=== PATIENT | female | born 1960 | race Caucasian/White ===

== ENCOUNTER 2019-09-21 09:00 | Day surgery (SDC) | payer OTHER ==
[~2019-09-21] VITALS: Ht 177.8 cm; Wt 118.5 kg
[~2019-09-21 09:00] MED LIST: ATOR10 PO; ATOR20 PO; CELE100 PO; CYCL10 PO; DICL75ER PO; GLIM2 PO; GLIP5 PO; HYDCHL12.5 PO; LORA10 PO; METF500 PO; METF500C PO; METO100ER PO; OMEP20ER PO; Percocet 5-3251 EACH PO
[2019-09-21] MEDS ORDERED: DICL75ER PO (09:58)
[2019-09-21] MEDS ORDERED: IBUP600 PO (09:59)
--- NOTE | 2019-09-21 12:50 | NUR ---
09/21/19 1250 Natacha Miller WAS GIVEN PER ORDERS IN PAR, PT IS ON 10L O2 VIA NRB. SHE IS MEDICATED FOR 06/13 PAIN.
--- NOTE | 2019-09-21 13:11 | NUR ---
09/21/19 1311 Natacha Miller REPORT GIVEN TO [facility] AT 1311.
== END 2019-09-21 14:20 | disposition home or self-care (01) ==
LOC: ORSCSDS 09:00
PROVIDERS: Orthopaedic Surgery
PROC: 0RNK4ZZ Release Left Shoulder Joint, Percutaneous Endoscopic Approach (ICD-10-PCS; principal; 2019-09-21 10:00)
PROC: 0LQ24ZZ Repair Left Shoulder Tendon, Percutaneous Endoscopic Approach (ICD-10-PCS; principal; 2019-09-21 10:00)
PROC: 0RBK4ZZ Excision of Left Shoulder Joint, Percutaneous Endoscopic Approach (ICD-10-PCS; principal; 2019-09-21 10:00)
DX: M75.112 Incomplete rotator cuff tear or rupture of left shoulder, not specified as traumatic (principal); M75.42 Impingement syndrome of left shoulder; I10 Essential (primary) hypertension; E11.9 Type 2 diabetes mellitus without complications; F17.210 Nicotine dependence, cigarettes, uncomplicated; E78.5 Hyperlipidemia, unspecified; Z79.899 Other long term (current) drug therapy; Z79.84 Long term (current) use of oral hypoglycemic drugs
CPT/HCPCS: 82947; C1713; J0171; J0330; J0690; J0735; J1885; J2250; J2405; J2704; J2710; J2795; J3010; J7120

== ENCOUNTER → 2020-07-24 | Outpatient (CLI) | payer OTHER ==
[~2020-07-24] MED LIST changes: +ALBU90OI INH; +ATOR40TA PO; +CITA20 PO; +HYDCHL25 PO; +IBUP600 PO; +Loratadine10 MG PO; +METO100 PO; +OXYB5 PO
== END | disposition home or self-care (01) ==
LOC: LAB SHORT 14:44 → LAB EV 14:44
DX: R50.9 Fever, unspecified (principal); Z20.828 Contact with and (suspected) exposure to other viral communicable diseases
CPT/HCPCS: U0003

== ENCOUNTER 2020-09-19 07:38 | Day surgery (SDC) | payer OTHER ==
[~2020-09-19] VITALS: Ht 180 cm; Wt 121.9 kg
--- NOTE | 2020-09-19 08:53 | NUR ---
Ambulatory in Day Surgery History, Chart, Medications and Allergies reviewed before start of procedure. Lungs clear T/O to Auscultation. Pre-Op teaching done. Pt verbalizes understanding.
--- NOTE | 2020-09-19 11:22 | NUR ---
RECEIVED REPORT FROM LARY MCELROY RN. PT AWAKE AND ABLE TO MAKE NEEDS KNOWN. HAD PT POSITION TO HI SEMI [place] TO PRACTICE DBC. ABLE TO TITRATE TO RA. PT PROVIDED FOOD AND FLUID, AT [facility]. WILL SEND HOME INCENTIVE SPIROMETER. 4 INCISIONS REMAIN INTACT WITHOUT BLEEDING AND DURABOND.
--- NOTE | 2020-09-19 12:02 | NUR ---
Patient up to Ambulate independently. Gait steady. Discharge instructions reviewed with patient. Patient verbalizes understanding. Copy given to patient to take home. Patient States Post-Procedure ride home has been arranged. Discharged via wheelchair to private car for ride home. INCISIONS X4 WITHOUT BLEEDING OR DARAINAGE, DURABOND REMAINS INTACT. PT ABLE TO INSPIRE 2500ML INTO INCENTIVE SPIROMETER. ALL BELONINGS RETURNED. PT DECIDED TO HAVE ANOUTHER PAIN PILL FORM INCREASE DURING GETTING DRESSED. PT RECEIVED A TOTAL OF 2 PAIN PILLS.
== END 2020-09-19 23:12 | disposition home or self-care (01) ==
LOC: ORSCMMR 07:38 → ORD 09:00 → ORSCMMR 09:00
PROVIDERS: Surgery
PROC: 0FT44ZZ Resection of Gallbladder, Percutaneous Endoscopic Approach (ICD-10-PCS; principal; 2020-09-19 09:00)
PROC: BF121ZZ Fluoroscopy of Gallbladder using Low Osmolar Contrast (ICD-10-PCS; principal; 2020-09-19 09:00)
DX: K80.10 Calculus of gallbladder with chronic cholecystitis without obstruction (principal); I10 Essential (primary) hypertension; E11.9 Type 2 diabetes mellitus without complications; K21.9 Gastro-esophageal reflux disease without esophagitis; E66.9 Obesity, unspecified; Z68.37 Body mass index [BMI] 37.0-37.9, adult; Z79.84 Long term (current) use of oral hypoglycemic drugs; Z79.899 Other long term (current) drug therapy
CPT/HCPCS: 74300; 82947; 88304; A9270; A9270-GY; C1729; J0690; J1100; J2250; J2405; J2704; J3010; J7120

== ENCOUNTER 2020-10-01 13:43 | Emergency (ER) | payer OTHER ==
[~2020-10-01] VITALS: Ht 180.3 cm; Wt 117.9 kg
[2020-10-01 14:22] LABS: BASOPHILS ABSOLUTE AUTO 0.16 K/mm3 (0.00-0.23); BASOPHILS PERCENT AUTO 1 % (0-2); EOSINOPHILS ABSOLUTE AUTO 0.35 K/mm3 (0.00-0.68); EOSINOPHILS PERCENT AUTO 2 % (0-6); Hematocrit 42.4 % (33.0-51.0); Hemoglobin 13.9 g/dL (11.5-16.0); IMMATURE GRAN ABSOLUTE AUTO 0.13 K/mm3 (0.00-0.10); IMMATURE GRAN PERCENT AUTO 1 % (0-1); LYMPHOCYTES ABSOLUTE AUTO 3.81 K/mm3 (0.84-5.20); LYMPHOCYTES PERCENT AUTO 25 % (21-46); MONOCYTES ABSOLUTE AUTO 0.82 K/mm3 (0.16-1.47); MONOCYTES PERCENT AUTO 5 % (4-13); Mean Corpuscular HGB 28.2 pg (26.0-34.0); Mean Corpuscular HGB Conc 32.8 g/dL (31.5-36.5); Mean Corpuscular Volume 86 fL (80-100); Mean Platelet Volume 13.6 fL (9.1-12.4); NEUTROPHILS ABSOLUTE AUTO 9.84 K/mm3 (1.96-9.15); NEUTROPHILS PERCENT AUTO 65 % (41-73); Platelet Count 295 K/mm3 (150-400); RDW Coefficient Variation 13.7 % (11.7-14.2); RDW Standard Deviation 42.6 fL (35.1-46.3); Red Blood Cell Count 4.93 M/mm3 (3.80-5.20); White Blood Cell Count 15.11 K/mm3 (4.00-11.30)
[2020-10-01] MEDS ORDERED: GLIP5 PO (14:25)
[2020-10-01 14:39] LABS: Alanine Aminotransfer (ALT/SGP 54 U/L (12-78); Albumin, Blood 3.6 g/dL (3.4-5.0); Albumin/Globulin Ratio 0.9 (0.8-1.8); Alk Phos 168 U/L (50-136); Anion Gap 7 mmol/L (6-16); Aspartate Aminotrans (AST/SGOT 38 U/L (12-37); Bilirubin, Total 0.3 mg/dL (0.1-1.0); Blood Urea Nitrogen 13 mg/dL (8-24); Bun/Creatinine Ratio 14.9 (12.0-20.0); CO2, Blood 28 mmol/L (21-32); Calcium, Blood 9.3 mg/dL (8.5-10.1); Chloride, Blood 102 mmol/L (98-108); Creatinine, Blood 0.88 mg/dL (0.40-1.00); Globulin, Blood 4.1 g/dL (2.2-4.0); Glomerular Filtration Rate >60 (60-); Glucose, Blood 256 mg/dL (70-99); Potassium, Blood 3.6 mmol/L (3.5-5.5); Sodium, Blood 137 mmol/L (136-145); Total Protein, Blood 7.7 g/dL (6.4-8.2)
== END 2020-10-01 16:04 | disposition home or self-care (01) ==
LOC: ER 13:43
PROVIDERS: Emergency Medicine
DX: E11.65 Type 2 diabetes mellitus with hyperglycemia (principal); I10 Essential (primary) hypertension; Z88.5 Allergy status to narcotic agent; Z91.09 Other allergy status, other than to drugs and biological substances; Z79.84 Long term (current) use of oral hypoglycemic drugs; Z87.891 Personal history of nicotine dependence; Z79.899 Other long term (current) drug therapy
CPT/HCPCS: 36415; 80053; 82947; 85025; 93005; 93010; 99285-25

== ENCOUNTER → 2023-01-15 | Outpatient (CLI) | payer OTHER | END | disposition home or self-care (01) | LOC: LAB SHORT 10:47 → LAB 10:47 | DX: L02.91 Cutaneous abscess, unspecified (principal) | CPT/HCPCS: 87070; 87075; 87077; 87147; 87186; 87205 ==

== ENCOUNTER → 2023-03-01 | Outpatient (CLI) | payer OTHER | END | disposition home or self-care (01) | LOC: LAB SHORT 15:53 → LAB 15:53 | DX: N76.0 Acute vaginitis (principal) | CPT/HCPCS: 87077; 87086; 87186 ==

== ENCOUNTER 2023-05-12 10:37 | Observation (INO) | payer OTHER ==
[~2023-05-12] VITALS: Ht 177.8 cm; Wt 120.9 kg
[~2023-05-12 10:37] MED LIST changes: +AMLO5 PO
[2023-05-12 11:26] LABS: BASOPHILS ABSOLUTE AUTO 0.12 K/mm3 (0.00-0.23); BASOPHILS PERCENT AUTO 1 % (0-2); EOSINOPHILS ABSOLUTE AUTO 0.47 K/mm3 (0.00-0.68); EOSINOPHILS PERCENT AUTO 3 % (0-6); Hematocrit 38.5 % (33.0-51.0); Hemoglobin 12.7 g/dL (11.5-16.0); IMMATURE GRAN ABSOLUTE AUTO 0.08 K/mm3 (0.00-0.10); IMMATURE GRAN PERCENT AUTO 1 % (0-1); LYMPHOCYTES ABSOLUTE AUTO 1.96 K/mm3 (0.84-5.20); LYMPHOCYTES PERCENT AUTO 13 % (21-46); MONOCYTES ABSOLUTE AUTO 0.98 K/mm3 (0.16-1.47); MONOCYTES PERCENT AUTO 6 % (4-13); Mean Corpuscular HGB 28.9 pg (26.0-34.0); Mean Corpuscular Volume 88 fL (80-100); NEUTROPHILS ABSOLUTE AUTO 11.84 K/mm3 (1.96-9.15); NEUTROPHILS PERCENT AUTO 77 % (41-73); Platelet Count 221 K/mm3 (150-400); RDW Coefficient Variation 13.5 % (11.7-14.2); RDW Standard Deviation 43.7 fL (35.1-46.3); White Blood Cell Count 15.45 K/mm3 (4.00-11.30)
[2023-05-12 11:29] LABS: Mean Platelet Volume 13.7 fL (9.1-12.4)
[2023-05-12 11:44] LABS: Albumin/Globulin Ratio 0.8 (0.8-1.8); Bilirubin, Total 0.4 mg/dL (0.1-1.0); Calcium, Blood 8.9 mg/dL (8.5-10.1); Globulin, Blood 3.8 g/dL (2.2-4.0); Potassium, Blood 3.4 mmol/L (3.5-5.5); Total Protein, Blood 6.8 g/dL (6.4-8.2)
[2023-05-12 14:40] VITALS: BP 167/78
--- NOTE | 2023-05-12 16:11 | NUR ---
SHIFT SUMMARY 1425 RECEIVED PT TO RM 338 VIA W/C FROM ER. PT ABLE TO TX SELF TO BED. A&O, PLEASANT AND CO-OP. PT ADMITTED FOR CELLULITIS IN SUPRA PUBIC AREA. PT WENT SWIMMING WITH GRANDKIDS ON SATURDAY AND LATER DEVELOPED A MASS, BECOMING RED/SWOLLEN AND PAINFUL. PT TO URGENT CARE FOR PO ABX ON SATURDAY WITHOUT GOOD EFFECT AND TO ER TODAY. IV VANCO STARTED IN ER AND COMPLETED UPON ARRIVAL TO UNIT. CONSENT FOR PICTURES OBTAIN AND TAKEN; NOW IN CHART. PT UP INDEPENDENTLY IN AND TO [facility]. NO C/O AT THIS TIME. PT IN CONTACT ISO FOR MRSA. CALL LT IN REACH.
[2023-05-12 19:50] VITALS: BP 184/78
[2023-05-13 04:49] VITALS: BP 145/89
[2023-05-13 05:09] LABS: BASOPHILS ABSOLUTE AUTO 0.11 K/mm3 (0.00-0.23); BASOPHILS PERCENT AUTO 1 % (0-2); EOSINOPHILS ABSOLUTE AUTO 0.49 K/mm3 (0.00-0.68); EOSINOPHILS PERCENT AUTO 4 % (0-6); Hematocrit 33.8 % (33.0-51.0); Hemoglobin 11.3 g/dL (11.5-16.0); IMMATURE GRAN ABSOLUTE AUTO 0.11 K/mm3 (0.00-0.10); IMMATURE GRAN PERCENT AUTO 1 % (0-1); LYMPHOCYTES ABSOLUTE AUTO 3.28 K/mm3 (0.84-5.20); LYMPHOCYTES PERCENT AUTO 23 % (21-46); MONOCYTES ABSOLUTE AUTO 1.03 K/mm3 (0.16-1.47); MONOCYTES PERCENT AUTO 7 % (4-13); Mean Corpuscular HGB 29.2 pg (26.0-34.0); Mean Corpuscular HGB Conc 33.4 g/dL (31.5-36.5); Mean Corpuscular Volume 87 fL (80-100); NEUTROPHILS ABSOLUTE AUTO 8.97 K/mm3 (1.96-9.15); NEUTROPHILS PERCENT AUTO 64 % (41-73); Platelet Count 203 K/mm3 (150-400); RDW Coefficient Variation 13.6 % (11.7-14.2); RDW Standard Deviation 43.5 fL (35.1-46.3); Red Blood Cell Count 3.87 M/mm3 (3.80-5.20); White Blood Cell Count 13.99 K/mm3 (4.00-11.30)
[2023-05-13 05:15] LABS: Mean Platelet Volume 13.4 fL (9.1-12.4)
--- NOTE | 2023-05-13 05:23 | NUR ---
SHIFT SUMMARY NO ACUTE CHANGES NOTED DURING SHIFT. PT ALERT AND ORIENTED, CALLS APPROPRIATELY. PT REMAINS ON RA, INDEPENDENT IN ROOM. MEDICATED MULTIPLE TIMES PER EMAR. WILL CONTINUE TO MONITOR. CALL LIGHT WITHIN REACH.
[2023-05-13 05:46] LABS: Bun/Creatinine Ratio 14.9 (12.0-20.0); Calcium, Blood 8.4 mg/dL (8.5-10.1); Creatinine, Blood 1.14 mg/dL (0.40-1.00); Potassium, Blood 3.5 mmol/L (3.5-5.5)
[2023-05-13 08:34] VITALS: BP 169/93
[2023-05-13] MEDS ORDERED: VISBIOME 112.51 EACH PO (14:09)
[2023-05-13] MEDS ORDERED: Acetaminophen650 M1 PO (14:09)
[2023-05-13] MEDS ORDERED: SULTRIDS PO (14:10)
[2023-05-13] MEDS ORDERED: Percocet 5-3251 EACH PO (14:56)
--- NOTE | 2023-05-13 15:28 | NUR ---
PT DISCHARGED AT 1528 AOX4 AND COOPERATIVE OF CARE. PT RECIEVED HER IV VANCO PRIOR TO DISCHARGE. PT HAD ALL PAPER WORK REVIEWED AND EDUCATIONAL MATERIAL SENT WITH HER. FAMILY TO TRANSPORT HOME AND PT WAS ESCORTED OUT VIA WHEELCHAIR TO N ENTRANCE. PT WAS INDEPENDENT IN ROOM. PT WAS STATING SHE WAS HAVING MORE PAIN, AND REQUESTED THIS MEDICAL SECRETARY RECEPTIONIST TO EVALUATE CELLULITIS AREA. AREA LOOKED LIKE IT HAD IMPROVE. SECOND NURSE WAS ALSO ASKED TO LOOK AND SHE FELT THE SITE LOOKED IMPROVED FROM FIRST PHOTO. PT SENT WITH PAIN MED SCRIPT.
== END 2023-05-13 15:30 | disposition home or self-care (01) ==
LOC: ER 10:37 → MEDS 10:38
PROVIDERS: Physician Assistant; ADMIT Family Medicine
DX: L03.314 Cellulitis of groin (principal); E87.6 Hypokalemia; I12.9 Hypertensive chronic kidney disease with stage 1 through stage 4 chronic kidney disease, or unspecified chronic kidney disease; E11.22 Type 2 diabetes mellitus with diabetic chronic kidney disease; N18.30 Chronic kidney disease, stage 3 unspecified; D72.829 Elevated white blood cell count, unspecified; Z88.6 Allergy status to analgesic agent; Z88.5 Allergy status to narcotic agent
CPT/HCPCS: 36415; 72193; 80048; 80053; 82947; 85025; 85651; 90471; 90714; 94760; 96365-59; 96366-59; 96372; 96375; 96375-59; 96376; 99285-25; A9270; G0378; J1650; J1885; J3010; J3370; J7050; Q9967

== ENCOUNTER → 2023-05-15 | Outpatient (CLI) | payer OTHER ==
[~2023-05-15] MED LIST changes: +Acetaminophen650 M1 PO; +SULTRIDS PO; +VISBIOME 112.51 EACH PO
[2023-05-15 16:16] LABS: BASOPHILS ABSOLUTE AUTO 0.12 K/mm3 (0.00-0.23); BASOPHILS PERCENT AUTO 1 % (0-2); EOSINOPHILS PERCENT AUTO 3 % (0-6); Hematocrit 39.1 % (33.0-51.0); Hemoglobin 12.8 g/dL (11.5-16.0); IMMATURE GRAN ABSOLUTE AUTO 0.15 K/mm3 (0.00-0.10); IMMATURE GRAN PERCENT AUTO 1 % (0-1); LYMPHOCYTES ABSOLUTE AUTO 2.58 K/mm3 (0.84-5.20); LYMPHOCYTES PERCENT AUTO 19 % (21-46); MONOCYTES ABSOLUTE AUTO 0.97 K/mm3 (0.16-1.47); MONOCYTES PERCENT AUTO 7 % (4-13); Mean Corpuscular HGB 28.7 pg (26.0-34.0); Mean Corpuscular HGB Conc 32.7 g/dL (31.5-36.5); Mean Corpuscular Volume 88 fL (80-100); NEUTROPHILS ABSOLUTE AUTO 9.44 K/mm3 (1.96-9.15); NEUTROPHILS PERCENT AUTO 69 % (41-73); Platelet Count 298 K/mm3 (150-400); RDW Coefficient Variation 13.5 % (11.7-14.2); RDW Standard Deviation 43.4 fL (35.1-46.3); Red Blood Cell Count 4.46 M/mm3 (3.80-5.20); White Blood Cell Count 13.66 K/mm3 (4.00-11.30)
[2023-05-15 16:19] LABS: Mean Platelet Volume 14.1 fL (9.1-12.4)
[2023-05-15 16:28] LABS: Albumin, Blood 3.3 g/dL (3.4-5.0); Albumin/Globulin Ratio 0.8 (0.8-1.8); Bilirubin, Total 0.4 mg/dL (0.1-1.0); Bun/Creatinine Ratio 12.9 (12.0-20.0); Calcium, Blood 9.1 mg/dL (8.5-10.1); Creatinine, Blood 1.39 mg/dL (0.40-1.00); Total Protein, Blood 7.3 g/dL (6.4-8.2)
== END ==
LOC: LAB 13:35 → LAB SHORT 13:35
PROVIDERS: Physician Assistant
DX: L03.311 Cellulitis of abdominal wall (principal)
CPT/HCPCS: 80053; 85025

== ENCOUNTER → 2023-06-25 | Outpatient (CLI) | payer OTHER ==
[2023-06-25 16:09] LABS: BASOPHILS ABSOLUTE AUTO 0.08 K/mm3 (0.00-0.23); BASOPHILS PERCENT AUTO 1 % (0-2); EOSINOPHILS ABSOLUTE AUTO 0.28 K/mm3 (0.00-0.68); EOSINOPHILS PERCENT AUTO 3 % (0-6); Hematocrit 38.2 % (33.0-51.0); Hemoglobin 12.1 g/dL (11.5-16.0); IMMATURE GRAN ABSOLUTE AUTO 0.06 K/mm3 (0.00-0.10); IMMATURE GRAN PERCENT AUTO 1 % (0-1); LYMPHOCYTES ABSOLUTE AUTO 2.88 K/mm3 (0.84-5.20); LYMPHOCYTES PERCENT AUTO 26 % (21-46); MONOCYTES ABSOLUTE AUTO 0.69 K/mm3 (0.16-1.47); MONOCYTES PERCENT AUTO 6 % (4-13); Mean Corpuscular HGB 27.8 pg (26.0-34.0); Mean Corpuscular HGB Conc 31.7 g/dL (31.5-36.5); Mean Corpuscular Volume 88 fL (80-100); NEUTROPHILS ABSOLUTE AUTO 6.92 K/mm3 (1.96-9.15); NEUTROPHILS PERCENT AUTO 64 % (41-73); Platelet Count 253 K/mm3 (150-400); RDW Coefficient Variation 13.8 % (11.7-14.2); RDW Standard Deviation 44.6 fL (35.1-46.3); Red Blood Cell Count 4.35 M/mm3 (3.80-5.20); White Blood Cell Count 10.91 K/mm3 (4.00-11.30)
[2023-06-25 16:16] LABS: Mean Platelet Volume 14.2 fL (9.1-12.4)
[2023-06-25 19:40] LABS: Alanine Aminotransfer (ALT/SGP 56 U/L (12-78); Albumin, Blood 3.5 g/dL (3.4-5.0); Alk Phos 141 U/L (50-136); Anion Gap 5 mmol/L (6-16); Aspartate Aminotrans (AST/SGOT 32 U/L (12-37); Bilirubin, Total 0.3 mg/dL (0.1-1.0); Blood Urea Nitrogen 13 mg/dL (8-24); Bun/Creatinine Ratio 12.5 (12.0-20.0); CHOL/HDL RATIO 4.9; CO2, Blood 29 mmol/L (21-32); Calcium, Blood 8.8 mg/dL (8.5-10.1); Chloride, Blood 105 mmol/L (98-108); Cholesterol 188 mg/dL (50-200); Creatinine, Blood 1.04 mg/dL (0.40-1.00); Globulin, Blood 3.4 g/dL (2.2-4.0); Glomerular Filtration Rate 60 (60-); Glucose, Blood 125 mg/dL (70-99); HDL Cholesterol 38 mg/dL (>39); Low Density Lipoprotein Chol 114 mg/dL (0-110); Potassium, Blood 3.9 mmol/L (3.5-5.5); Sodium, Blood 139 mmol/L (136-145); Total Protein, Blood 6.9 g/dL (6.4-8.2); Triglycerides 179 mg/dL (30-160); Very Low Density Lipoprot Chol 35 mg/dL (6-32)
== END ==
LOC: LAB SHORT 14:15 → LAB 14:15
PROVIDERS: Physician Assistant
DX: E78.2 Mixed hyperlipidemia (principal); I10 Essential (primary) hypertension; E11.9 Type 2 diabetes mellitus without complications; L03.311 Cellulitis of abdominal wall
CPT/HCPCS: 80053; 80061; 83036; 85025

== ENCOUNTER 2023-08-14 13:22 | Emergency (ER) | payer OTHER ==
[~2023-08-14] VITALS: Ht 177.8 cm; Wt 115.7 kg
[~2023-08-14 13:22] MED LIST changes: +BUPR150ER PO; +DOCUZEN 8.6-501 EACH PO; +PIOG15 PO; +SULFAMETHOXAZO1 EAC1 PO
[2023-08-14 13:53] LABS: BASOPHILS ABSOLUTE AUTO 0.08 K/mm3 (0.00-0.23); BASOPHILS PERCENT AUTO 1 % (0-2); EOSINOPHILS ABSOLUTE AUTO 0.15 K/mm3 (0.00-0.68); EOSINOPHILS PERCENT AUTO 2 % (0-6); Hematocrit 35.5 % (33.0-51.0); Hemoglobin 11.5 g/dL (11.5-16.0); IMMATURE GRAN ABSOLUTE AUTO 0.04 K/mm3 (0.00-0.10); IMMATURE GRAN PERCENT AUTO 1 % (0-1); LYMPHOCYTES ABSOLUTE AUTO 1.92 K/mm3 (0.84-5.20); LYMPHOCYTES PERCENT AUTO 23 % (21-46); MONOCYTES ABSOLUTE AUTO 0.48 K/mm3 (0.16-1.47); MONOCYTES PERCENT AUTO 6 % (4-13); Mean Corpuscular HGB 28.9 pg (26.0-34.0); Mean Corpuscular HGB Conc 32.4 g/dL (31.5-36.5); Mean Corpuscular Volume 89 fL (80-100); Mean Platelet Volume 12.6 fL (9.1-12.4); NEUTROPHILS ABSOLUTE AUTO 5.87 K/mm3 (1.96-9.15); NEUTROPHILS PERCENT AUTO 69 % (41-73); Platelet Count 276 K/mm3 (150-400); RDW Coefficient Variation 14.2 % (11.7-14.2); RDW Standard Deviation 46.4 fL (35.1-46.3); Red Blood Cell Count 3.98 M/mm3 (3.80-5.20); White Blood Cell Count 8.54 K/mm3 (4.00-11.30)
[2023-08-14 14:12] LABS: Albumin, Blood 3.2 g/dL (3.4-5.0); Albumin/Globulin Ratio 0.9 (0.8-1.8); Bilirubin, Total 0.3 mg/dL (0.1-1.0); Bun/Creatinine Ratio 13.7 (12.0-20.0); Calcium, Blood 8.8 mg/dL (8.5-10.1); Creatinine, Blood 1.17 mg/dL (0.40-1.00); Globulin, Blood 3.4 g/dL (2.2-4.0); Potassium, Blood 4.2 mmol/L (3.5-5.5); Total Protein, Blood 6.6 g/dL (6.4-8.2)
[2023-08-14 17:23] LABS: Source, Urine Clean Catch
[2023-08-14 17:39] LABS: Appearance, Urine Clear (Clear); Bilirubin, Urine Neg (Neg); Blood, Urine Neg (Neg); Color, Urine Yellow (P-Yellow); Glucose Qualitative, Urine Neg (Neg); Ketones, Urine Neg (Neg); Leukocyte Esterase, Urine 1+ (Neg); Nitrite, Urine Neg (Neg); Protein, Urine Neg (Neg); Specific Gravity, Urine 1.015 (1.003-1.022); Urobilinogen, Urine NORM (Normal)
[2023-08-14 18:13] LABS: Bacteria Few /hpf; Red Blood Cells, Urine 0-2 /hpf (0-2); Squamous Epithelial Cells Few /hpf (Few); Transitional Epithelial Cells Rare /hpf (0-Rare)
[2023-08-14 19:30] VITALS: BP 130/70
== END 2023-08-14 19:40 | disposition home or self-care (01) ==
LOC: ER 13:22
PROVIDERS: Emergency Medicine; Student in an Organized Health Care Education/Training Program
DX: R53.1 Weakness (principal); R42 Dizziness and giddiness; R00.1 Bradycardia, unspecified; I12.9 Hypertensive chronic kidney disease with stage 1 through stage 4 chronic kidney disease, or unspecified chronic kidney disease; E11.22 Type 2 diabetes mellitus with diabetic chronic kidney disease; N18.9 Chronic kidney disease, unspecified; E78.5 Hyperlipidemia, unspecified; Z91.09 Other allergy status, other than to drugs and biological substances; Z88.5 Allergy status to narcotic agent; Z88.6 Allergy status to analgesic agent; Z79.84 Long term (current) use of oral hypoglycemic drugs; Z79.899 Other long term (current) drug therapy; Z87.891 Personal history of nicotine dependence
CPT/HCPCS: 80053; 81001; 85025; 87077; 87086; 87186; 93005; 93010; 99284-25

== ENCOUNTER → 2023-08-26 | Outpatient (CLI) | payer OTHER ==
[2023-08-26 17:56] LABS: BASOPHILS ABSOLUTE AUTO 0.09 K/mm3 (0.00-0.23); BASOPHILS PERCENT AUTO 1 % (0-2); EOSINOPHILS ABSOLUTE AUTO 0.14 K/mm3 (0.00-0.68); EOSINOPHILS PERCENT AUTO 1 % (0-6); Hemoglobin 12.4 g/dL (11.5-16.0); IMMATURE GRAN ABSOLUTE AUTO 0.06 K/mm3 (0.00-0.10); IMMATURE GRAN PERCENT AUTO 0 % (0-1); LYMPHOCYTES ABSOLUTE AUTO 2.88 K/mm3 (0.84-5.20); LYMPHOCYTES PERCENT AUTO 21 % (21-46); MONOCYTES ABSOLUTE AUTO 0.91 K/mm3 (0.16-1.47); MONOCYTES PERCENT AUTO 7 % (4-13); Mean Corpuscular HGB 28.7 pg (26.0-34.0); Mean Corpuscular HGB Conc 32.6 g/dL (31.5-36.5); Mean Corpuscular Volume 88 fL (80-100); NEUTROPHILS ABSOLUTE AUTO 9.59 K/mm3 (1.96-9.15); NEUTROPHILS PERCENT AUTO 70 % (41-73); Platelet Count 259 K/mm3 (150-400); RDW Coefficient Variation 13.8 % (11.7-14.2); RDW Standard Deviation 44.9 fL (35.1-46.3); Red Blood Cell Count 4.32 M/mm3 (3.80-5.20); White Blood Cell Count 13.67 K/mm3 (4.00-11.30)
[2023-08-26 18:00] LABS: Mean Platelet Volume 13.7 fL (9.1-12.4)
[2023-08-26 18:07] LABS: Albumin, Blood 3.5 g/dL (3.4-5.0); Albumin/Globulin Ratio 0.9 (0.8-1.8); Bilirubin, Total 0.3 mg/dL (0.1-1.0); Bun/Creatinine Ratio 13.9 (12.0-20.0); Creatinine, Blood 1.08 mg/dL (0.40-1.00); Potassium, Blood 3.7 mmol/L (3.5-5.5); Total Protein, Blood 7.5 g/dL (6.4-8.2)
== END | disposition home or self-care (01) ==
LOC: LAB 14:47 → LAB SHORT 14:47
PROVIDERS: Family Medicine
DX: N39.0 Urinary tract infection, site not specified (principal)
CPT/HCPCS: 80053; 85025

== ENCOUNTER → 2023-08-26 | Outpatient (CLI) | payer OTHER | END | disposition home or self-care (01) | LOC: LAB SHORT 14:47 → LAB 14:47 | DX: N39.0 Urinary tract infection, site not specified (principal) | CPT/HCPCS: 87077; 87086; 87186 ==

== ENCOUNTER → 2023-09-05 | Outpatient (CLI) | payer OTHER | END | disposition home or self-care (01) | LOC: LAB SHORT 14:50 → LAB 14:50 | DX: R30.0 Dysuria (principal) | CPT/HCPCS: 87077; 87086; 87186 ==

== ENCOUNTER → 2023-09-27 | Outpatient (CLI) | payer OTHER | LOC: LAB 12:50 → LAB SHORT 12:50 | DX: R30.0 Dysuria (principal) | CPT/HCPCS: 87077; 87086; 87186 ==

== ENCOUNTER → 2023-12-24 | Outpatient (CLI) | payer OTHER ==
[2023-12-24 17:13] LABS: Source, Urine Clean Catch
[2023-12-24 18:54] LABS: Appearance, Urine Clear (Clear); Bilirubin, Urine Neg (Neg); Blood, Urine Neg (Neg); Color, Urine Yellow (P-Yellow); Glucose Qualitative, Urine Neg (Neg); Ketones, Urine Neg (Neg); Leukocyte Esterase, Urine 2+ (Neg); Nitrite, Urine Neg (Neg); Protein, Urine Neg (Neg); Urobilinogen, Urine NORM (Normal); pH, Urine 6.5 (5.0-8.0)
[2023-12-24 19:08] LABS: Red Blood Cells, Urine Not Seen /hpf (0-2); White Blood Cells, Urine 0-2 /hpf (0-5)
[2023-12-24 19:09] LABS: Bacteria Few /hpf; Squamous Epithelial Cells Not Seen /hpf (Few)
== END | disposition home or self-care (01) ==
LOC: LAB 17:12 → LAB SHORT 17:12
PROVIDERS: Obstetrics & Gynecology
DX: R35.0 Frequency of micturition (principal)
CPT/HCPCS: 81001; 87077; 87086; 87147; 87186

== ENCOUNTER 2024-10-17 14:34 | Observation (INO) | payer OTHER ==
[~2024-10-17] VITALS: Ht 177.8 cm; Wt 109.1 kg
[2024-10-17 15:43] LABS: BASOPHILS ABSOLUTE AUTO 0.09 K/mm3 (0.00-0.23); BASOPHILS PERCENT AUTO 1 % (0-2); EOSINOPHILS PERCENT AUTO 2 % (0-6); IMMATURE GRAN ABSOLUTE AUTO 0.07 K/mm3 (0.00-0.10); IMMATURE GRAN PERCENT AUTO 1 % (0-1); LYMPHOCYTES ABSOLUTE AUTO 2.22 K/mm3 (0.84-5.20); LYMPHOCYTES PERCENT AUTO 16 % (21-46); MONOCYTES ABSOLUTE AUTO 0.85 K/mm3 (0.16-1.47); MONOCYTES PERCENT AUTO 6 % (4-13); Mean Corpuscular HGB 29.1 pg (26.0-34.0); Mean Corpuscular HGB Conc 33.3 g/dL (31.5-36.5); Mean Corpuscular Volume 87 fL (80-100); Mean Platelet Volume 12.7 fL (9.1-12.4); NEUTROPHILS ABSOLUTE AUTO 10.15 K/mm3 (1.96-9.15); NEUTROPHILS PERCENT AUTO 75 % (41-73); Platelet Count 262 K/mm3 (150-400); RDW Coefficient Variation 13.6 % (11.7-14.2); RDW Standard Deviation 43.6 fL (35.1-46.3); Red Blood Cell Count 4.13 M/mm3 (3.80-5.20); White Blood Cell Count 13.58 K/mm3 (4.00-11.30)
[2024-10-17 16:09] LABS: Albumin, Blood 3.2 g/dL (3.4-5.0); Albumin/Globulin Ratio 0.8 (0.8-1.8); Bilirubin, Total 0.3 mg/dL (0.1-1.0); Bun/Creatinine Ratio 13.1 (12.0-20.0); Calcium, Blood 9.1 mg/dL (8.5-10.1); Creatinine, Blood 1.22 mg/dL (0.40-1.00); Globulin, Blood 3.9 g/dL (2.2-4.0); Potassium, Blood 3.9 mmol/L (3.5-5.5); Total Protein, Blood 7.1 g/dL (6.4-8.2)
[2024-10-17] MEDS ORDERED: Vancomycin HCL 2,000 MG in NS 500 ML IV ONE (19:05)
[2024-10-17] MEDS ORDERED: Albuterol 2.5 MG/3 ML VIAL INH PRN (19:45)
[2024-10-17] MEDS ORDERED: FLU VACC TS2024-25(6MOS UP)/PF 45 MCG/0.5 ML SYRINGE IM SCH (19:50)
[2024-10-17] MEDS ORDERED: Ondansetron HCl 2 MG / ML 2ML Vial IV PRN (19:55)
[2024-10-17 20:49] VITALS: BP 150/68
[2024-10-17] MEDS ORDERED: oxyBUTYnin chloride 5 MG TAB PO SCH (21:00)
[2024-10-17] MEDS ORDERED: AmLODIPine Besylate 5 MG Tab PO SCH (21:00)
[2024-10-17] MEDS ORDERED: Metoprolol Tartrate 50 MG Tab PO SCH (21:00)
[2024-10-17] MEDS ORDERED: Lactobacil 2-S.Thermo-Bifido 1 1 Cap PO SCH (21:00)
[2024-10-17] MEDS ORDERED: Cefepime HCl 2,000 MG in NS 100 ML IV SCH (21:00)
[2024-10-17] MEDS ORDERED: NS 250 ML IV PRN (21:45)
[2024-10-17] MEDS ORDERED: NS 1,000 ML IV SCH (23:30)
[2024-10-18] VITALS (14 sets, daily range): BP systolic 104–147; BP diastolic 44–70
--- NOTE | 2024-10-18 05:57 | NUR ---
SHIFT SUMMARY NOC PT A/O X 4. PLEASANT AND COOPERATIVE WITH CARE. ADMIT FROM ED WITH CELLULITIS OF L BUTTOCKS ABSCESS. IT IS 3CM RED, INFLAMMED, AND HARD. PT HAS SURG CONSULT THAT WAS CALLED IN TO DR BURNETTE'S ANSWERING SERVICE. PT HAS BEEN NPO SINCE MIDNIGHT IN PREPARATION FOR SURGICAL INTERVENTION. PT RECIEVING IV ABX WELL INFUSION OF NS @ 75 ML/HR X 1 BAG. PT IS Q6H CBG CHECK WITH FIRST 138 AND SECOND. PT CURRENTLY RESTING WITH BED IN LOWEST POSITION, AND CALL LIGHT WITHIN REACH.
[2024-10-18] MEDS ORDERED: Omeprazole 20 MG CapCR PO SCH (06:00)
[2024-10-18 06:05] LABS: Hematocrit 34.6 % (33.0-51.0); Hemoglobin 11.4 g/dL (11.5-16.0); Mean Corpuscular HGB 28.9 pg (26.0-34.0); Mean Corpuscular HGB Conc 32.9 g/dL (31.5-36.5); Mean Corpuscular Volume 88 fL (80-100); Mean Platelet Volume 12.7 fL (9.1-12.4); Platelet Count 228 K/mm3 (150-400); RDW Coefficient Variation 13.7 % (11.7-14.2); RDW Standard Deviation 44.2 fL (35.1-46.3); Red Blood Cell Count 3.94 M/mm3 (3.80-5.20); White Blood Cell Count 10.61 K/mm3 (4.00-11.30)
[2024-10-18 06:31] LABS: Bun/Creatinine Ratio 14.3 (12.0-20.0); Creatinine, Blood 1.19 mg/dL (0.40-1.00); Potassium, Blood 4.1 mmol/L (3.5-5.5)
[2024-10-18] MEDS ORDERED: buPROPion HCL 150 MG TAB.SR.12H PO SCH (09:00)
[2024-10-18] MEDS ORDERED: Atorvastatin 40 MG Tab PO SCH (09:00)
[2024-10-18] MEDS ORDERED: HydroCHLOROthiazide 25 mg Tab PO SCH (09:00)
--- NOTE | 2024-10-18 12:11 | NUR ---
PT TO PACU VIA GURNEY FROM RM 335 AT 1200 FOR PREOP CARE. PLEASANT & TALKATIVE. SURGICAL PACK COMPLETE. AFEBRILE/HR KENNY 49. NOTIFIED RICKI RANDALL CRNA. LR AT TKO INFUSING. SURGICAL HAT/PAS SLEEVES/BP CUFF PLACED. NO COMPLAINTS. RESTING QUIETLY.
[2024-10-18] MEDS ORDERED: Bupivacaine 0.5% HCl 5 MG/ML 30MLVIAL ONE (12:30)
[2024-10-18] MEDS ORDERED: FentaNYL Citrate 50 MCG/ML 2 ML Injection ONE (12:41)
[2024-10-18] MEDS ORDERED: propofoL 20 ML IV ONE (12:41)
--- NOTE | 2024-10-18 12:53 | NUR ---
TO OR 2 HARISI SUSAN AT 1240 IN STABLE CONDITION.
[2024-10-18] MEDS ORDERED: Lidocaine HCl 2% 20 ML MDV ONE (13:03)
[2024-10-18] MEDS ORDERED: Ketorolac Tromethamine 30mg Vial ONE (13:03)
[2024-10-18] MEDS ORDERED: Metoclopramide HCl 5MG / ML 2ML Vial ONE (13:03)
[2024-10-18] MEDS ORDERED: SuccINYLCHOLINE Chloride 100 MG/5 ML 5MLSYR ONE (13:03)
[2024-10-18] MEDS ORDERED: Dexamethasone Sod Phos 10 MG/ML 1ML VIAL ONE (13:03)
[2024-10-18] MEDS ORDERED: Ondansetron HCl 2 MG / ML 2ML Vial ONE (13:03)
--- NOTE | 2024-10-18 13:04 | NUR ---
10/18/24 1304 DEONNA STEEN PATIENT ON SCHEDULED ANTIBIOTICS, NO INTRAOPERATIVE ANTIBIOTICS ORDERED
[2024-10-18] MEDS ORDERED: HYDROcodone 5-APAP 325 TAB PO PRN (13:50)
--- NOTE | 2024-10-18 14:09 | NUR ---
PT RETURNED FROM DAY SURGERY PT IS A/OX4, [facility] BATHROOM STEADY ON HER FEET. VS WNL
[2024-10-18] MEDS ORDERED: Insulin Human Lispro 100 Units/ML 3ML Syringe SC SCH ×2 (16:30)
--- NOTE | 2024-10-18 18:36 | NUR ---
SHIFT SUMMARY PT AOX4, INDEPENDENT IN THE ROOM. I AND D TO GLUTEAL AREA DONE TODAY, PT TOLERATED IT WELL. NO COMPLAINTS OF PAIN. REPOSITIONS SELF IN BED. CALLS AND MAKES HER NEEDS KNOWN. DC HOME TOMORROW POSSIBLY. CALL LIGHT WITHIN REACH, BED LOCKED AND IN THE LOWEST POSITION. WILL REPORT TO ONCOMING NURSE.
[2024-10-18] MEDS ORDERED: Vancomycin HCL 1,750 MG in NS 500 ML IV SCH (19:00)
[2024-10-19 05:05] VITALS: BP 147/61
--- NOTE | 2024-10-19 05:44 | NUR ---
SHIFT SUMMARY NOC PT A/O X 4. PLEASANT AND COOPERATIVE WITH CARE. POST OP I&D VSS. PT HAS NOT HAD C/O OF PAIN AT L JHONNY-RECTAL SITE, BUT AT BEGINNING OF SHIFT PT WENT TO BATHROOM AND THE GAUZE COVERING THE INCISION SITE WITH IODAFORM WAS PULLED OUT OF WOUND BED. SITE CLEANED WITH WOUND CARE SPRAY AND REPACKED WITH IODAFORM AND COVEREED WITH SLIGHTLY WET GAUZE TO ENSURE THAT IT WOULD NOT STICK TO PACKING AND PULL OUT AGAIN. PT STILL RECEIVING IV ABX. HS CBG [address] BURNETTE WANT PACKING TAKEN OUT TODAY AND FOR PT TO SHOWER. PT EXPECTED TO DISCHARGE HOME TODAY, PT STATES THAT THEIR CAR IS PARKED AT HOSPITAL AND THAT THEY WOULD PREFER TO DRIVE SELF HOME. PT CURRENTLY RESTING WITH BED IN LOWEST POSITION, AND CALL LIGHT WITHIN REACH.
[2024-10-19 07:16] VITALS: BP 154/61
--- NOTE | 2024-10-19 09:00 | NUR ---
pt sitting in bed awake, a/ox4, cooperative with care, follows commands well states site is sore but is ok, wondering when she can go home, lungs are cleaer t/o, on r/a, no cough noted, hrr, no edema noted, ppp+2, cap refill <3 sec, vs stable, afebrile, piv to lfa site is clear and patent, btx4, abd flat soft nontender, voids without diff, skin has I&D site perirectal area packed with iodaform, no drainage noted, is pink, hard, maew, up ambulating in room indep, gait noted to be steady, aggie call light in reach.
--- NOTE | 2024-10-19 12:26 | NUR ---
pt has been discharged to home, went over discharge instructions with her, she verbalizes understanding, script for pain meds placed in her discharge folder, as well as return to work slip. new medication was faxed to her pharmacy, iv removed intact, will leave after lunch.
--- NOTE | 2024-10-19 13:15 | NUR ---
pt left via wheelchair with water resources program director in attendence and all her belongings.
== END 2024-10-19 12:56 | disposition home or self-care (01) ==
LOC: ER 14:34 → MEDS 14:35 → ER 19:43 → MEDS 19:43
PROVIDERS: Nurse Practitioner Acute Care; Student in an Organized Health Care Education/Training Program; Surgery; ADMIT Student in an Organized Health Care Education/Training Program
PROC: 0D9Q0ZX Drainage of Anus, Open Approach, Diagnostic (ICD-10-PCS; principal; 2024-10-18 11:00)
DX: K61.0 Anal abscess (principal); I12.9 Hypertensive chronic kidney disease with stage 1 through stage 4 chronic kidney disease, or unspecified chronic kidney disease; E11.22 Type 2 diabetes mellitus with diabetic chronic kidney disease; N18.9 Chronic kidney disease, unspecified; E78.5 Hyperlipidemia, unspecified; K21.9 Gastro-esophageal reflux disease without esophagitis; Z87.891 Personal history of nicotine dependence; Z79.84 Long term (current) use of oral hypoglycemic drugs; Z79.899 Other long term (current) drug therapy; Z88.5 Allergy status to narcotic agent; Z91.048 Other nonmedicinal substance allergy status; Z90.49 Acquired absence of other specified parts of digestive tract
CPT/HCPCS: 36415; 72193; 80048; 80053; 82947; 83605; 85025; 85027; 87070; 87075; 87077; 87147; 87186; 87205; 94760; 94762; 96374-59; 99284-25; A9270; J0330; J0692; J1100; J1885; J2405; J2704; J2765; J3010; J3370; J7030; J7040; Q9967

== ENCOUNTER → 2025-06-01 | Outpatient (CLI) | payer MEDICARE, OTHER ==
[2025-06-01 12:37] LABS: BASOPHILS ABSOLUTE AUTO 0.05 K/mm3 (0.00-0.23); BASOPHILS PERCENT AUTO 0 % (0-2); EOSINOPHILS ABSOLUTE AUTO 0.08 K/mm3 (0.00-0.68); EOSINOPHILS PERCENT AUTO 1 % (0-6); Hematocrit 37.3 % (33.0-51.0); Hemoglobin 12.0 g/dL (11.5-16.0); IMMATURE GRAN ABSOLUTE AUTO 0.12 K/mm3 (0.00-0.10); IMMATURE GRAN PERCENT AUTO 1 % (0-1); LYMPHOCYTES ABSOLUTE AUTO 2.32 K/mm3 (0.84-5.20); LYMPHOCYTES PERCENT AUTO 16 % (21-46); MONOCYTES ABSOLUTE AUTO 0.73 K/mm3 (0.16-1.47); MONOCYTES PERCENT AUTO 5 % (4-13); Mean Corpuscular HGB Conc 32.2 g/dL (31.5-36.5); Mean Corpuscular Volume 85 fL (80-100); NEUTROPHILS ABSOLUTE AUTO 11.17 K/mm3 (1.96-9.15); NEUTROPHILS PERCENT AUTO 77 % (41-73); NRBC ABSOLUTE 0.00 K/mm3 (0.00-0.02); NRBC Auto 0.0 /100 WBC (0.0-0.2); Platelet Count 253 K/mm3 (150-400); RDW Coefficient Variation 13.8 % (11.7-14.2); RDW Standard Deviation 43.2 fL (35.1-46.3)
[2025-06-01 12:52] LABS: Alanine Aminotransfer (ALT/SGP 25.0 U/L (12-78); Albumin, Blood 3.7 g/dL (3.4-5.0); Albumin/Globulin Ratio 1.1 (0.8-1.8); Anion Gap 12.0 mmol/L (6-16); Aspartate Aminotrans (AST/SGOT 11.0 U/L (12-37); Bilirubin, Total 0.6 mg/dL (0.1-1.0); Blood Urea Nitrogen 21.0 mg/dL (8-24); CO2, Blood 29.0 mmol/L (21-32); Calcium, Blood 9.0 mg/dL (8.5-10.1); Chloride, Blood 99.0 mmol/L (98-108); Creatinine, Blood 1.19 mg/dL (0.40-1.00); Globulin, Blood 3.3 g/dL (2.2-4.0); Glucose, Blood 172.0 mg/dL (70-99); Potassium, Blood 3.6 mmol/L (3.5-5.5); Sodium, Blood 136.0 mmol/L (136-145); Thyroid Stimulating Hormone 2.389 uIU/mL (0.360-4.800); Total Protein, Blood 7.0 g/dL (6.4-8.2)
== END ==
LOC: LAB SHORT 12:28 → LAB 12:28
PROVIDERS: Family Medicine
DX: Z01.89 Encounter for other specified special examinations (principal); R53.83 Other fatigue
CPT/HCPCS: 80053; 84443; 85025

== ENCOUNTER 2025-07-20 06:21 | Day surgery (SDC) | payer OTHER ==
[2025-07-20] VITALS (11 sets, daily range): BP systolic 106–127; BP diastolic 53–68
[~2025-07-20] VITALS: Ht 177.8 cm; Wt 105.0 kg
[~2025-07-20 06:21] MED LIST changes: +Amiodarone HCl200 MG PO; +BUPR100 PO; +ELIQUIS5 M2 PO; +EZET10 PO; +FURO20 PO; +POTCHL20ER PO
[2025-07-20] MEDS ORDERED: NS 1,000 ML IV ONE (06:35)
--- NOTE | 2025-07-20 07:12 | NUR ---
ASSUMED CARE FROM ANESTHESIA. PT AWAKE AND VERBALIZING WELL. SB 45-55BPM POST CARDIOVERSION.
[2025-07-20] MEDS ORDERED: METO25ER PO (07:31)
--- NOTE | 2025-07-20 08:21 | NUR ---
PT AND VERBALIZED UNDERSTANDING OF WRITTEN AND VERBAL D/C INST. SB 50 BPM ON D/C. IV REMOVED. PT TAKEN OUT OF THE [facility] VIA W/C.
== END 2025-07-20 23:00 | disposition home or self-care (01) ==
LOC: MHTC 06:21 → ORSCMMR 06:21 → MHTC 06:22 → ORD 07:00 → ORSCMMR 07:00 → MHTC 23:00 → ORSCMMR 23:00
DX: I48.19 Other persistent atrial fibrillation (principal); I10 Essential (primary) hypertension; E78.5 Hyperlipidemia, unspecified; G47.33 Obstructive sleep apnea (adult) (pediatric); E11.69 Type 2 diabetes mellitus with other specified complication; E66.9 Obesity, unspecified; Z68.33 Body mass index [BMI] 33.0-33.9, adult; Z79.84 Long term (current) use of oral hypoglycemic drugs; Z79.01 Long term (current) use of anticoagulants; Z79.899 Other long term (current) drug therapy; Z87.891 Personal history of nicotine dependence; Z88.5 Allergy status to narcotic agent
CPT/HCPCS: 92960; 93005; 93010; J7030

== ENCOUNTER 2025-08-01 15:12 | Emergency (ER) | payer OTHER ==
[~2025-08-01] VITALS: Ht 177.8 cm; Wt 99.8 kg
[~2025-08-01 15:12] MED LIST changes: +METO25ER PO
[2025-08-01 15:46] LABS: BASOPHILS ABSOLUTE AUTO 0.09 K/mm3 (0.00-0.23); BASOPHILS PERCENT AUTO 1 % (0-2); EOSINOPHILS ABSOLUTE AUTO 0.03 K/mm3 (0.00-0.68); EOSINOPHILS PERCENT AUTO 0 % (0-6); Hematocrit 39.7 % (33.0-51.0); Hemoglobin 13.6 g/dL (11.5-16.0); IMMATURE GRAN ABSOLUTE AUTO 0.10 K/mm3 (0.00-0.10); IMMATURE GRAN PERCENT AUTO 1 % (0-1); LYMPHOCYTES ABSOLUTE AUTO 1.98 K/mm3 (0.84-5.20); LYMPHOCYTES PERCENT AUTO 12 % (21-46); MONOCYTES ABSOLUTE AUTO 1.12 K/mm3 (0.16-1.47); MONOCYTES PERCENT AUTO 7 % (4-13); Mean Corpuscular HGB Conc 34.3 g/dL (31.5-36.5); Mean Corpuscular Volume 83 fL (80-100); NEUTROPHILS ABSOLUTE AUTO 12.71 K/mm3 (1.96-9.15); NEUTROPHILS PERCENT AUTO 79 % (41-73); NRBC ABSOLUTE 0.00 K/mm3 (0.00-0.02); NRBC Auto 0.0 /100 WBC (0.0-0.2); Platelet Count 338 K/mm3 (150-400); RDW Coefficient Variation 14.3 % (11.7-14.2); RDW Standard Deviation 43.3 fL (35.1-46.3)
[2025-08-01 16:10] LABS: Alanine Aminotransfer (ALT/SGP 33.0 U/L (12-78); Albumin, Blood 3.9 g/dL (3.4-5.0); Albumin/Globulin Ratio 1.2 (0.8-1.8); Anion Gap 11.0 mmol/L (3-11); Aspartate Aminotrans (AST/SGOT 21.0 U/L (12-37); Bilirubin, Total 0.6 mg/dL (0.1-1.0); Blood Urea Nitrogen 26.0 mg/dL (8-24); CO2, Blood 31.0 mmol/L (21-32); Calcium, Blood 9.4 mg/dL (8.5-10.1); Chloride, Blood 89.0 mmol/L (98-108); Creatinine, Blood 1.3 mg/dL (0.40-1.00); Globulin, Blood 3.3 g/dL (2.2-4.0); Glucose, Blood 178.0 mg/dL (70-99); Potassium, Blood 2.7 mmol/L (3.5-5.5); Sodium, Blood 128.0 mmol/L (136-145); Total Protein, Blood 7.2 g/dL (6.4-8.2)
[2025-08-01] MEDS ORDERED: NS 1,000 ML IV SCH (16:15)
[2025-08-01] MEDS ORDERED: Magnesium Sulf 2 GM/Water 50ML 50 ML IV ONE (16:15)
[2025-08-01 16:47] LABS: Magnesium, Blood 2.1 mg/dL (1.6-2.4); Thyroid Stimulating Hormone 1.14 uIU/mL (0.360-4.800)
[2025-08-01 19:38] VITALS: BP 108/91
== END 2025-08-01 19:38 | disposition home or self-care (01) ==
LOC: ER 15:12
PROVIDERS: Emergency Medicine
DX: E87.6 Hypokalemia (principal); R94.31 Abnormal electrocardiogram [ECG] [EKG]; R00.2 Palpitations; I12.9 Hypertensive chronic kidney disease with stage 1 through stage 4 chronic kidney disease, or unspecified chronic kidney disease; E11.22 Type 2 diabetes mellitus with diabetic chronic kidney disease; N18.30 Chronic kidney disease, stage 3 unspecified; E78.5 Hyperlipidemia, unspecified; Z87.891 Personal history of nicotine dependence; Z88.8 Allergy status to other drugs, medicaments and biological substances; Z91.048 Other nonmedicinal substance allergy status; Z88.5 Allergy status to narcotic agent; Z79.84 Long term (current) use of oral hypoglycemic drugs; Z79.01 Long term (current) use of anticoagulants; Z79.899 Other long term (current) drug therapy
CPT/HCPCS: 80053; 83735; 84439; 84443; 84484; 85025; 93005; 93010; 96365; 96366; 96375; 99283-25; A9270; J2919; J3475; J7030

== ENCOUNTER 2025-08-06 23:21 | Emergency (ER) | payer OTHER ==
[~2025-08-06] VITALS: Ht 177.8 cm; Wt 99.8 kg
[2025-08-06 23:41] VITALS: BP 150/72
== END 2025-08-07 00:06 | disposition home or self-care (01) ==
LOC: ER 23:21
DX: I80.8 Phlebitis and thrombophlebitis of other sites (principal); Z88.8 Allergy status to other drugs, medicaments and biological substances; Z88.5 Allergy status to narcotic agent; Z79.84 Long term (current) use of oral hypoglycemic drugs; Z79.01 Long term (current) use of anticoagulants; I48.91 Unspecified atrial fibrillation; E11.42 Type 2 diabetes mellitus with diabetic polyneuropathy; I10 Essential (primary) hypertension; M20.41 Other hammer toe(s) (acquired), right foot; M20.42 Other hammer toe(s) (acquired), left foot; E87.6 Hypokalemia; G47.33 Obstructive sleep apnea (adult) (pediatric); R94.31 Abnormal electrocardiogram [ECG] [EKG]; Z90.49 Acquired absence of other specified parts of digestive tract
CPT/HCPCS: 36415; 80053; 83735; 99282; A9270